=== PATIENT | female | born 1940 | race Caucasian/White ===

== ENCOUNTER → 2018-06-01 | Outpatient (CLI) | payer MEDICARE ==
[~2018-06-01] MED LIST: ASPI-1197 PO; CLOP75TA14 PO; HYDR-4153 PO; METO-408 PO; OMEP20CA10 PO; PRAV20TA4 PO; REGADENOSON 0.4 MG/5 ML PF SYG IVP SCH; RISE35TA PO
== END | disposition home or self-care (01) ==
LOC: SHCH 08:31
PROVIDERS: ATTEND Internal Medicine Cardiovascular Disease
DX: I48.1 Persistent atrial fibrillation (principal); E78.5 Hyperlipidemia, unspecified
CPT/HCPCS: 78452; 93017; 96374; A9500 ×2; J2785

== ENCOUNTER → 2018-06-09 | Outpatient (CLI) | payer MEDICARE ==
[~2018-06-09] MED LIST changes: -REGADENOSON 0.4 MG/5 ML PF SYG IVP SCH
== END | disposition home or self-care (01) ==
LOC: SHCH 09:30
PROVIDERS: ATTEND Internal Medicine Cardiovascular Disease
DX: I07.1 Rheumatic tricuspid insufficiency (principal); I27.20 Pulmonary hypertension, unspecified; I25.10 Atherosclerotic heart disease of native coronary artery without angina pectoris; Z79.01 Long term (current) use of anticoagulants
CPT/HCPCS: 93306

== ENCOUNTER → 2018-07-08 | Outpatient (CLI) | payer MEDICARE ==
[~2018-07-08] MED LIST changes: +APIX5TAB PO; +CHOL100018 PO; -CLOP75TA14 PO; -HYDR-4153 PO; +LORA10CA9 PO; +MULT1TAB70 PO; +OSCD250 PO; +UBIQ75CA PO
== END | disposition home or self-care (01) ==
LOC: SHCH 08:25
PROVIDERS: ATTEND Internal Medicine Cardiovascular Disease
DX: I74.9 Embolism and thrombosis of unspecified artery (principal); I70.90 Unspecified atherosclerosis
CPT/HCPCS: 93975

== ENCOUNTER 2018-09-09 07:47 | Day surgery (SDC) | payer MEDICARE ==
[2018-09-07 14:10] VITALS: BP 164/73
[2018-09-07 14:13] LABS: BASOPHILS % (AUTO) 0.6 % (0.0-5.0); EOSINOPHILS % (AUTO) 3.3 % (0.0-8.0); HEMATOCRIT 36.9 % (36-48); LYMPHOCYTES % (AUTO) 28.8 % (21.0-51.0); MEAN CORPUSCULAR HEMOGLOBIN 31.5 pg (27.0-33.0); MEAN CORPUSCULAR HGB CONC 33.4 g/dL (32.0-36.0); MEAN CORPUSCULAR VOLUME 94.3 fL (79-99); MONOCYTES % (AUTO) 6.8 % (3.0-13.0); NEUTROPHILS % (AUTO) 60.5 % (40.0-77.0); PLATELET COUNT (AUTO) 263 K/uL (130-400); RED BLOOD CELL COUNT(AUTO) 3.91 MIL/uL (4.00-5.50); WHITE BLOOD COUNT (AUTO) 7.2 K/uL (4.8-10.8)
[2018-09-07 14:22] LABS: CREATININE 1.1 mg/dL (0.5-1.5); POTASSIUM 4.8 mmol/L (3.5-5.1)
[2018-09-07 14:26] LABS: INR 1.02 (0.85-1.15); PARTIAL THROMBOPLASTIN TIME 29.1 SEC (26.3-35.5); PROTHROMBIN TIME 10.7 SEC (9.6-11.6)
[2018-09-09] VITALS (20 sets, daily range): BP systolic 113–169; BP diastolic 52–80
[~2018-09-09] VITALS: Ht 167.6 cm; Wt 77.7 kg
[~2018-09-09 07:47] MED LIST changes: +ASPI-1181 PO; -ASPI-1197 PO; -LORA10CA9 PO; +LORA10TA7 PO; +NITR0.4T50 SL; -OMEP20CA10 PO; +PRAV20TA PO; -PRAV20TA4 PO; +UBID200C37 PO; -UBIQ75CA PO
[2018-09-09] MEDS ORDERED: SODIUM CHLORIDE 0.9% 1000ML 1,000 ML IV SCH (09:00)
[2018-09-09] MEDS ORDERED: MIDAZOLAM HCL 1 MG/ML 2ML VIAL IVP SCH (09:00)
[2018-09-09] MEDS ORDERED: FENTANYL CITRATE PF 50 MCG/1 ML 2ML VIAL IVP SCH (09:00)
[2018-09-09] MEDS ORDERED: LIDOCAINE HCL 2% VISCOUS 15 ML UDCUP PO SCH (09:00)
[2018-09-09] MEDS ORDERED: SODIUM CHLORIDE 0.9% 1000ML 1,000 ML IV ONE (09:05)
[2018-09-09] MEDS ORDERED: PROPOFOL 10 MG/ML 20ML VIAL IV ONE (11:20)
== END 2018-09-09 13:10 | disposition home or self-care (01) ==
LOC: DAH 07:47
PROVIDERS: ATTEND Internal Medicine Cardiovascular Disease
DX: I08.1 Rheumatic disorders of both mitral and tricuspid valves (principal); I48.1 Persistent atrial fibrillation; M54.12 Radiculopathy, cervical region; Z98.890 Other specified postprocedural states; I10 Essential (primary) hypertension; E78.5 Hyperlipidemia, unspecified; I25.10 Atherosclerotic heart disease of native coronary artery without angina pectoris; Z95.5 Presence of coronary angioplasty implant and graft; K22.2 Esophageal obstruction; K21.0 Gastro-esophageal reflux disease with esophagitis; M81.0 Age-related osteoporosis without current pathological fracture; M19.90 Unspecified osteoarthritis, unspecified site; Z79.01 Long term (current) use of anticoagulants; Z80.9 Family history of malignant neoplasm, unspecified
CPT/HCPCS: 36415; 80048; 85025; 85610; 85730; 92960; 93005 ×2; 93313; A4606; J2250; J2704; J3010; J7030; 99152; 99153

== ENCOUNTER 2019-08-26 10:24 | Observation (INO) | payer MEDICARE ==
[2019-08-25 10:13] LABS: BASOPHILS % (AUTO) 0.6 % (0.0-5.0); HEMATOCRIT 40.3 % (36-48); LYMPHOCYTES % (AUTO) 22.6 % (21.0-51.0); MEAN CORPUSCULAR HEMOGLOBIN 30.5 pg (27.0-33.0); MEAN CORPUSCULAR VOLUME 98.3 fL (79-99); MONOCYTES % (AUTO) 8.2 % (3.0-13.0); NEUTROPHILS % (AUTO) 64.4 % (40.0-77.0); PLATELET COUNT (AUTO) 174 K/uL (130-400); RED CELL DISTRIBUTION WIDTH 12.2 % (11.0-15.5); WHITE BLOOD COUNT (AUTO) 5.3 K/uL (4.8-10.8)
[2019-08-25 10:21] LABS: CREATININE 1.1 mg/dL (0.5-1.5); POTASSIUM 4.7 mmol/L (3.5-5.1)
[2019-08-25 10:23] VITALS: BP 148/78
[2019-08-25 10:28] LABS: INR 1.02 (0.85-1.15); PARTIAL THROMBOPLASTIN TIME 25.7 SEC (26.3-35.5); PROTHROMBIN TIME 10.7 SEC (9.6-11.6)
--- NOTE | 2019-08-25 10:55 | NUR ---
SPOKE TO JASS FOR BIOTRONIC AND HE IS AWARE OF PPM DUAL
[2019-08-26] VITALS (8 sets, daily range): BP systolic 114–153; BP diastolic 61–89
[~2019-08-26] VITALS: Ht 167.6 cm; Wt 75.7 kg
[~2019-08-26 10:24] MED LIST changes: +CEFAZOLIN SODIUM 1 GM VIAL IVP SCH; +SODIUM CHLORIDE 0.9% 500ML 500 ML IV SCH
[2019-08-26] MEDS ORDERED: SODIUM CHLORIDE 0.9% 1000ML 1,000 ML IV ONE (12:48)
[2019-08-26] MEDS ORDERED: TYLENOL PO (12:57)
[2019-08-26] MEDS ORDERED: VITAMIN B PO (12:57)
[2019-08-26] MEDS ORDERED: OMEP20TA25 PO (12:57)
[2019-08-26] MEDS ORDERED: [UNRECOGNIZED DRUG - OTHER] PO (12:59)
[2019-08-26] MEDS ORDERED: MEPERIDINE-PF 25 MG/ML SYG ONE ×2 (13:25→14:09)
[2019-08-26] MEDS ORDERED: CEFAZOLIN SODIUM 1 GM VIAL ONE (13:25)
[2019-08-26] MEDS ORDERED: BUPIVACAINE/PF 0.25% 30ML VIAL IJ ONE (13:25)
[2019-08-26] MEDS ORDERED: LIDOCAINE HCL 1% MDV 50ML VIAL ONE (13:26)
[2019-08-26] MEDS ORDERED: MIDAZOLAM HCL 1 MG/ML 2ML VIAL ONE ×2 (13:26→14:09)
[2019-08-26] MEDS ORDERED: ACETAMINOPHEN-CODEINE 300/30MG TAB PO PRN (14:45)
[2019-08-26] MEDS ORDERED: NITROGLYCERIN 0.4 MG SL TAB SL PRN (14:45)
--- NOTE | 2019-08-26 15:10 | NUR ---
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 LT UPPER CHEST DSG DRY & INTACT. NO BLEEDING, NO HEMATOMA NOTED. SLING TO LT ARM. ARM PRECAUTIONS REVIEWED. DENIES INCISIONAL PAIN. TELE: AFIB/PACED. A/O X 3. NO SOB. NO DISTRESS NOTED. ORIENTED TO RM. INFORMED TO MAINTAIN BEDREST X 3 HRS. INSTRUCTED TO CALL FOR ASSISTANCE. CALL FLAVIO W/IN REACH.
--- NOTE | 2019-08-26 18:10 | NUR ---
STATUS BEDREST COMPLETE. LT UPPER CHEST DSG DRY & INTACT. NO BLEEDING, NO HEMATOMA NOTED. SLING TO LT ARM. DENIES INCISIONAL PAIN. PT ASSISTED OOB. TOLERATED WELL. NO DISTRESS NOTED.
[2019-08-26] MEDS: METOPROLOL TARTRATE 25 MG TAB PO SCH (20:08)
[2019-08-26] MEDS: CALCIUM 600 + VITAMIN D 400 TABLET PO SCH (20:08)
[2019-08-26] MEDS ORDERED: ATORVASTATIN CALCIUM 10 MG TABLET PO SCH (21:00)
[2019-08-27 03:00] VITALS: BP 143/69
[2019-08-27 07:43] VITALS: BP 148/75
--- NOTE | 2019-08-27 07:45 | NUR ---
AM ASSESSMENT PT LAYING IN BED, HOB ELEVATED 30 DEGREES, RESTING. A/O X 3. NO SOB. NO DISTRESS NOTED. DENIES CHEST PAIN OR DISCOMFORT. DENIES PALPITATIONS. DENIES INCISIONAL PAIN. S/P PPM , 08/26/19. LT UPPER CHEST DSG DRY & INTACT. NO BLEEDING, NO HEMATOMA NOTED. ARM PRECAUTIONS REINFORCED. TELE: AFIB/PACED. DENIES N/V AND/OR DIARRHEA. UP W/ASSISTANCE. INSTRUCTED TO CALL FOR ASSISTANCE. CALL FLAVIO W/IN REACH.
[2019-08-27] MEDS ORDERED: **HM**(Cholecalciferol (Vitamin D3) (Vitamin D3) 1,000 UNIT PO SCH (09:00)
[2019-08-27] MEDS ORDERED: LORATADINE 10 MG TABLET PO SCH (09:00)
[2019-08-27] MEDS ORDERED: ASPIRIN 81 MG EC TAB PO SCH (09:00)
[2019-08-27] MEDS ORDERED: MULTIVITAMIN TABLET PO SCH (09:00)
[2019-08-27] MEDS ORDERED: PANTOPRAZOLE SODIUM 40 MG TABLET.DR PO SCH (09:00)
[2019-08-27] MEDS: METOPROLOL TARTRATE 25 MG TAB PO SCH (09:20)
[2019-08-27] MEDS: CALCIUM 600 + VITAMIN D 400 TABLET PO SCH (09:20)
--- NOTE | 2019-08-27 09:20 | NUR ---
DISCHARGE TELE MARK REMOVED @ THIS TIME.
--- NOTE | 2019-08-27 10:20 | NUR ---
CHART REVIEWED, A[facility] GENERATED
[2019-08-27 11:32] VITALS: BP 135/68
--- NOTE | 2019-08-27 13:50 | NUR ---
DISCHARGE VERBAL & WRITTEN DISCHARGE INSTRUCTIONS REVIEWED & GIVEN TO PT & SPOUSE. QUESTIONS ENCOURAGED & CLARIFIED. PROPER CARE & ACTIVITY AFTER PPM PLACEMENT REVIEWED. REMINDED PT TO RESUME TAKING ELIQUIS TOMORROW. PT TO CONTINUE HOME MEDICATIONS. IV DISCONTINUED. PT & SPOUSE TO GATHER PERSONAL BELONGINGS. WILL NOTIFY STAFF WHEN READY TO BE TAKEN TO PRIVATE VEHICLE.
--- NOTE | 2019-08-27 14:10 | NUR ---
DISCHARGE PT TAKEN TO PRIVATE VEHICLE VIA C BY Josh NUNEZ PCP. NO DISTRESS NOTED. SPOUSE AWAITING FOR PT IN VEHICLE.
== END 2019-08-27 14:10 | disposition home or self-care (01) ==
LOC: DAH 10:24 → DAHIP 10:25 → 2AH 15:19
PROVIDERS: ADMIT Internal Medicine; ATTEND Internal Medicine
DX: I48.21 Permanent atrial fibrillation (principal); I49.5 Sick sinus syndrome; I10 Essential (primary) hypertension; E78.5 Hyperlipidemia, unspecified; K21.9 Gastro-esophageal reflux disease without esophagitis; M81.0 Age-related osteoporosis without current pathological fracture; Z86.73 Personal history of transient ischemic attack (TIA), and cerebral infarction without residual deficits; Z79.899 Other long term (current) drug therapy
CPT/HCPCS: 33207; 36415; 71045; 80048; 85025; 85610; 85730; A4215; A4216; A4221; A4222; A4223 ×2; A4606; A4663; C1786; C1898; G0378 ×15; J0690; J2175 ×2; J2250 ×2; J3490 ×2; J7030; 99156; 99157

== ENCOUNTER 2019-10-08 18:53 | Inpatient (IN) | payer MEDICARE ==
[~2019-10-08] VITALS: Ht 167.6 cm; Wt 76.0 kg
[~2019-10-08 18:53] MED LIST changes: -CEFAZOLIN SODIUM 1 GM VIAL IVP SCH; +OMEP20TA25 PO; -SODIUM CHLORIDE 0.9% 500ML 500 ML IV SCH; +TYLENOL PO; +VITAMIN B PO; +[UNRECOGNIZED DRUG - OTHER] PO
[2019-10-08] MEDS ORDERED: ASPIRIN 325 MG TABLET ONE (19:36)
[2019-10-08 19:41] LABS: BASOPHILS % (AUTO) 0.2 % (0.0-5.0); EOSINOPHILS % (AUTO) 3.6 % (0.0-8.0); HEMATOCRIT 37.4 % (36-48); MEAN CORPUSCULAR HEMOGLOBIN 30.9 pg (27.0-33.0); MEAN CORPUSCULAR HGB CONC 32.9 g/dL (32.0-36.0); MONOCYTES % (AUTO) 8.4 % (3.0-13.0); NEUTROPHILS % (AUTO) 51.6 % (40.0-77.0); PLATELET COUNT (AUTO) 205 K/uL (130-400); RED BLOOD CELL COUNT(AUTO) 3.98 MIL/uL (4.00-5.50); RED CELL DISTRIBUTION WIDTH 11.9 % (11.0-15.5); WHITE BLOOD COUNT (AUTO) 6.1 K/uL (4.8-10.8)
[2019-10-08 19:50] LABS: CREATININE 1.5 mg/dL (0.5-1.5); POTASSIUM 4.2 mmol/L (3.5-5.1)
[2019-10-08] MEDS ORDERED: SODIUM CHLORIDE 0.9% 1000ML 1,000 ML IV ONE (21:35)
[2019-10-08] MEDS ORDERED: NITROGLYCERIN 1GM/1 INCH PACKET TD ONE (22:25)
[2019-10-09] MEDS ORDERED: ACETAMINOPHEN 325 MG TAB PO PRN ×2 (02:15)
[2019-10-09] MEDS ORDERED: LACTULOSE 20 GM/30 ML UDCUP PO PRN (02:15)
[2019-10-09] MEDS ORDERED: ONDANSETRON HCL 4 MG/2 ML VIAL IV PRN (02:15)
[2019-10-09] MEDS: NITROGLYCERIN 1GM/1 INCH PACKET TD SCH ×3 (02:15→18:17)
[2019-10-09] MEDS ORDERED: MORPHINE SULFATE 2 MG/ML 1ML SYG IVP PRN (02:15)
[2019-10-09 05:50] VITALS: BP 156/61
[2019-10-09] MEDS ORDERED: [UNRECOGNIZED DRUG - OTHER] PO (06:09)
[2019-10-09] MEDS ORDERED: LACT1CAP78 PO (06:09)
[2019-10-09 07:26] LABS: BASOPHILS % (AUTO) 0.2 % (0.0-5.0); EOSINOPHILS % (AUTO) 4.1 % (0.0-8.0); HEMATOCRIT 38.4 % (36-48); MEAN CORPUSCULAR HEMOGLOBIN 30.2 pg (27.0-33.0); MEAN CORPUSCULAR HGB CONC 31.3 g/dL (32.0-36.0); MEAN CORPUSCULAR VOLUME 96.7 fL (79-99); MONOCYTES % (AUTO) 8.7 % (3.0-13.0); NEUTROPHILS % (AUTO) 51.8 % (40.0-77.0); PLATELET COUNT (AUTO) 207 K/uL (130-400); RED BLOOD CELL COUNT(AUTO) 3.97 MIL/uL (4.00-5.50); RED CELL DISTRIBUTION WIDTH 12.2 % (11.0-15.5); WHITE BLOOD COUNT (AUTO) 5.1 K/uL (4.8-10.8)
[2019-10-09 07:33] LABS: CREATININE 1.2 mg/dL (0.5-1.5); POTASSIUM 4.3 mmol/L (3.5-5.1)
[2019-10-09 07:42] LABS: ALBUMIN 3.5 g/dL (3.5-5.0); BILIRUBIN,TOTAL 0.4 mg/dL (0.2-1.0)
[2019-10-09 08:00] VITALS: BP 155/83
[2019-10-09] MEDS ORDERED: NITROGLYCERIN 0.4 MG SL TAB SL PRN (08:30)
[2019-10-09] MEDS: ASPIRIN 81 MG EC TAB PO SCH (09:00)
[2019-10-09] MEDS ORDERED: ACTONEL 35 MG PO SCH (09:00)
[2019-10-09] MEDS ORDERED: APIXABAN 5 MG TABLET PO SCH (09:00)
[2019-10-09] MEDS: METOPROLOL SUCCINATE 50 MG TAB.SR.24H PO SCH (09:39)
[2019-10-09] MEDS: ASPIRIN 81MG TAB.CHEW PO SCH (09:40)
[2019-10-09] MEDS: LORATADINE 10 MG TABLET PO SCH (09:40)
[2019-10-09] MEDS: FAMOTIDINE/PF 20 MG/2 ML VIAL IV SCH ×2 (09:41→20:25)
[2019-10-09 11:00] VITALS: BP 150/79
[2019-10-09 16:00] VITALS: BP 144/75
--- NOTE | 2019-10-09 16:00 | NUR ---
INITIAL MET Gregoria VALENTINE AND SPOUSE AT BEDSIDE- WINTER YISEL, ACTIVE AND INDEPENDENT- NO DME EXCEPT WHEN SHE 'GOES TO AN AIRPORT, I GET THE WHEELCHAIR THEN' DANCES 5 NIGHTS PER WEEK WITH HER . HOME SAFE AND ACCESSIBLE HERE FOR POSSIBLE PACE MAKER MALFUNCTION, JUST PLACED 6 WEEKS AGO, POSSIBLE LEAD DISPLACEMENT, STATES WAS COMPLIANT WITH INSTRUCTIONS ABOUT NOT RAISING ARM ABOVE HEAD BUT IS VERY ACTIVE. [facility], [place] TO FOLLOW Addendum: 10/10/19 at 0923 by HARDEEP JAY RN CM Amended: Links added.
[2019-10-09 19:50] VITALS: BP 144/72
[2019-10-09] MEDS: ATORVASTATIN CALCIUM 10 MG TABLET PO SCH (20:26)
[2019-10-09 23:05] VITALS: BP 132/46
[2019-10-10] MEDS: NITROGLYCERIN 1GM/1 INCH PACKET TD SCH (02:06)
[2019-10-10 03:42] VITALS: BP 136/67
[2019-10-10 08:00] VITALS: BP 152/87
[2019-10-10] MEDS: ASPIRIN 81 MG EC TAB PO SCH (08:50)
[2019-10-10] MEDS: ASPIRIN 81MG TAB.CHEW PO SCH (08:54)
[2019-10-10] MEDS: LORATADINE 10 MG TABLET PO SCH (08:54)
[2019-10-10] MEDS: METOPROLOL SUCCINATE 50 MG TAB.SR.24H PO SCH (08:55)
[2019-10-10] MEDS: FAMOTIDINE/PF 20 MG/2 ML VIAL IV SCH ×2 (08:55→20:36)
[2019-10-10 11:00] VITALS: BP 133/73
[2019-10-10 15:59] VITALS: BP 135/94
[2019-10-10 19:07] VITALS: BP 122/66
[2019-10-10] MEDS: ATORVASTATIN CALCIUM 10 MG TABLET PO SCH (20:36)
[2019-10-10 23:33] VITALS: BP 137/71
[2019-10-11] VITALS (11 sets, daily range): BP systolic 124–163; BP diastolic 53–90
[2019-10-11 05:00] LABS: HEMATOCRIT 40.9 % (36-48); MEAN CORPUSCULAR HEMOGLOBIN 30.7 pg (27.0-33.0); MEAN CORPUSCULAR HGB CONC 31.8 g/dL (32.0-36.0); MEAN CORPUSCULAR VOLUME 96.7 fL (79-99); PLATELET COUNT (AUTO) 204 K/uL (130-400); RED BLOOD CELL COUNT(AUTO) 4.23 MIL/uL (4.00-5.50); RED CELL DISTRIBUTION WIDTH 11.9 % (11.0-15.5); WHITE BLOOD COUNT (AUTO) 5.6 K/uL (4.8-10.8)
[2019-10-11 05:08] LABS: CREATININE 1.2 mg/dL (0.5-1.5); POTASSIUM 4.4 mmol/L (3.5-5.1)
[2019-10-11 05:11] LABS: INR 0.98 (0.85-1.15); PARTIAL THROMBOPLASTIN TIME 25.1 SEC (26.3-35.5); PROTHROMBIN TIME 10.6 SEC (9.6-11.6)
[2019-10-11] MEDS: ASPIRIN 81 MG EC TAB PO SCH (07:41)
[2019-10-11] MEDS: FAMOTIDINE/PF 20 MG/2 ML VIAL IV SCH ×2 (08:53→20:28)
[2019-10-11] MEDS: METOPROLOL SUCCINATE 50 MG TAB.SR.24H PO SCH (08:53)
[2019-10-11] MEDS: LORATADINE 10 MG TABLET PO SCH (08:56)
[2019-10-11] MEDS: ASPIRIN 81MG TAB.CHEW PO SCH (08:56)
[2019-10-11] MEDS ORDERED: BUPIVACAINE/PF 0.25% 30ML VIAL IJ ONE (09:29)
[2019-10-11] MEDS ORDERED: MIDAZOLAM HCL 1 MG/ML 2ML VIAL ONE ×2 (09:29→10:24)
[2019-10-11] MEDS ORDERED: LIDOCAINE HCL 1% MDV 50ML VIAL ONE (09:30)
[2019-10-11] MEDS ORDERED: VANCOMYCIN 1GM+NS 250ML 250 ML IV ONE ×2 (09:30→09:32)
[2019-10-11] MEDS ORDERED: MEPERIDINE-PF 25 MG/ML SYG ONE ×2 (09:30→10:24)
[2019-10-11] MEDS ORDERED: ACETAMINOPHEN-CODEINE 300/30MG TAB PO PRN (11:15)
--- NOTE | 2019-10-11 11:25 | NUR ---
RECEIVED PT FROM [employer] PACEMAKER LINE REPLACEMENT; PT HAS A CLEAN DRY AND INTACT DRESSING TO LEFT CHEST, LEFT ARM IS IN A SLING, PT DENIES PAIN, AAOX3 AND STRONG RADIAL PULSE LEFT WRIST; I HAVE GONE OVER WITH PATIENT RESTRICTIONS ASSOCIATED WITH PROCEDURE INCLUDING 4 HOURS OF BEDREST AND LEFT ARM LIMITATIONS AND SHE STATED UNDERSTANDING; VS STABLE , TELEMETRY REPLACED AND I SPOKE TO DR HEARN ON THE PHONE AND HE STATED TO NOT START ELEQUIS AT THIS TIME BUT THAT HE WOULD GIVE FURTHER ORDERS TOMORROW.
[2019-10-11] MEDS: ATORVASTATIN CALCIUM 10 MG TABLET PO SCH (20:28)
[2019-10-12 00:08] VITALS: BP 117/59
[2019-10-12 04:08] VITALS: BP 131/75
[2019-10-12 05:03] LABS: BASOPHILS % (AUTO) 0.5 % (0.0-5.0); EOSINOPHILS % (AUTO) 4.7 % (0.0-8.0); HEMATOCRIT 40.1 % (36-48); LYMPHOCYTES % (AUTO) 32.6 % (21.0-51.0); MEAN CORPUSCULAR HEMOGLOBIN 29.9 pg (27.0-33.0); MEAN CORPUSCULAR HGB CONC 31.4 g/dL (32.0-36.0); MEAN CORPUSCULAR VOLUME 95.2 fL (79-99); MONOCYTES % (AUTO) 8.2 % (3.0-13.0); NEUTROPHILS % (AUTO) 53.8 % (40.0-77.0); PLATELET COUNT (AUTO) 188 K/uL (130-400); RED BLOOD CELL COUNT(AUTO) 4.21 MIL/uL (4.00-5.50); RED CELL DISTRIBUTION WIDTH 11.9 % (11.0-15.5)
[2019-10-12 05:20] LABS: CREATININE 1.2 mg/dL (0.5-1.5); MAGNESIUM 1.9 mg/dL (1.80-2.40); POTASSIUM 4.9 mmol/L (3.5-5.1)
[2019-10-12 08:14] VITALS: BP 138/62
[2019-10-12] MEDS: FAMOTIDINE/PF 20 MG/2 ML VIAL IV SCH (09:14)
[2019-10-12] MEDS: LORATADINE 10 MG TABLET PO SCH (09:14)
[2019-10-12] MEDS: ASPIRIN 81MG TAB.CHEW PO SCH (09:14)
[2019-10-12] MEDS: METOPROLOL SUCCINATE 50 MG TAB.SR.24H PO SCH (09:16)
--- NOTE | 2019-10-12 11:04 | NUR ---
DC PAPERWORK COMPLETE AND D/C INSRUCTIONS GIVEN TO PATIENT ON AFTERCARE FOR A PACEMAKER INSERTION (LEAD EXCHANGE) INCLUDING TO REMOVE DRESSING IN 24 TO 48 HRS, WATCH SITE FOR ANY SIGNS OR SYMPTOMS OF INFECTION AND REPORT TO MD, REPORT ANY CHEST PAIN OR OTHER CARDIAC ISSUES, FOLLOW LEFT ARM LIMB RESTRICTIONS NOT TO RAISE ABOVE SHOULDER AND WEAR SLING NEEDED, NO NEW SCRIPTS BUT TO CONT. ALL CURRENT HOME MEDICATIONS AND RESTART HOME ELEQUIS DOSE TOMORROW; KEEP FOLLOW UP APPOINTMENTS MADE WITH PCP AND DR HEARN; PT STATED UNDERSTANDING OF ALL INSTRUCTIONS, IV ACCESS REMOVED AND TELEPACK REMOVED. HERE TO DRIVE PT HOME.
== END 2019-10-12 11:39 | disposition home or self-care (01) | DRG 260 ==
LOC: EDH 18:53 → EDHIP 10-09 02:01 → 4AH 10-09 06:32
PROVIDERS: ADMIT Internal Medicine; ATTEND Internal Medicine
PROC: 4B02XSZ Measurement of Cardiac Pacemaker, External Approach (ICD-10-PCS; principal; 2019-10-09)
PROC: 02WA3MZ Revision of Cardiac Lead in Heart, Percutaneous Approach (ICD-10-PCS; 2019-10-09)
DX: T82.128A Displacement of other cardiac electronic device, initial encounter (principal); I50.21 Acute systolic (congestive) heart failure; I25.110 Atherosclerotic heart disease of native coronary artery with unstable angina pectoris; D68.69 Other thrombophilia; J44.9 Chronic obstructive pulmonary disease, unspecified; I11.0 Hypertensive heart disease with heart failure; I48.0 Paroxysmal atrial fibrillation; Y83.8 Other surgical procedures as the cause of abnormal reaction of the patient, or of later complication, without mention of misadventure at the time of the procedure; Y92.89 Other specified places as the place of occurrence of the external cause; Z79.01 Long term (current) use of anticoagulants; Z95.5 Presence of coronary angioplasty implant and graft; Z95.0 Presence of cardiac pacemaker; Z83.3 Family history of diabetes mellitus; Z82.5 Family history of asthma and other chronic lower respiratory diseases; Z82.3 Family history of stroke; Z82.0 Family history of epilepsy and other diseases of the nervous system; Z80.42 Family history of malignant neoplasm of prostate; Z80.8 Family history of malignant neoplasm of other organs or systems; Z82.49 Family history of ischemic heart disease and other diseases of the circulatory system
CPT/HCPCS: 33215; 36415; 71045; 78582; 80048; 80053; 83735; 83880; 84484; 85025; 85027; 85378; 85610; 85730; 93005; 99156; 99157; 99291; A9540; A9558; G0378; J2175; J2250; J3370; J3490; J7030

== ENCOUNTER 2022-11-08 09:47 | Emergency (ER) | payer MEDICARE ==
[~2022-11-08] VITALS: Ht 167.6 cm; Wt 72.1 kg
[~2022-11-08 09:47] MED LIST changes: -ASPI-1181 PO; +ASPI-1443 PO; +LACT1CAP78 PO; +MULT-660 PO; -MULT1TAB70 PO; +OMEP20TA20 PO; -OMEP20TA25 PO; -TYLENOL PO; +[UNRECOGNIZED DRUG - OTHER] PO
[2022-11-08 10:07] LABS: BASOPHILS % (AUTO) 0.2 % (0.0-5.0); EOSINOPHILS % (AUTO) 4.6 % (0.0-8.0); LYMPHOCYTES % (AUTO) 33.9 % (21.0-51.0); MEAN CORPUSCULAR HGB CONC 33.2 g/dL (32.0-36.0); MEAN CORPUSCULAR VOLUME 96.4 fL (79-99); MONOCYTES % (AUTO) 7.3 % (3.0-13.0); PLATELET COUNT (AUTO) 204 K/uL (130-400); RED BLOOD CELL COUNT(AUTO) 3.94 MIL/uL (4.00-5.50); RED CELL DISTRIBUTION WIDTH 12.2 % (11.0-15.5); WHITE BLOOD COUNT (AUTO) 4.8 K/uL (4.8-10.8)
[2022-11-08 10:26] LABS: APPEARANCE,URINE CLOUDY (CLEAR); BILIRUBIN,URINE NEGATIVE (NEGATIVE); COLOR,URINE YELLOW (YELLOW); GLUCOSE, URINE (UA) NEGATIVE (NEGATIVE); KETONES,URINE NEGATIVE (NEGATIVE); LEUKOCYTE ESTERASE ,URINE 500 Leu/uL (NEGATIVE); NITRATE,URINE NEGATIVE (NEGATIVE); OCCULT BLOOD,URINE NEGATIVE (NEGATIVE); PH,URINE 6.5 (5.0-8.0); PROTEIN,URINE 20 mg/dL (NEGATIVE); UROBILINOGEN,URINE 0.2 mg/dL (0.2-1.0)
[2022-11-08 10:31] LABS: POTASSIUM 4.5 mmol/L (3.5-5.1)
[2022-11-08 10:50] LABS: ALBUMIN 3.9 g/dL (3.5-5.0); CREATININE 1.2 mg/dL (0.5-1.5); TOTAL PROTEIN, SERUM 7.6 g/dL (6.0-8.3)
[2022-11-08 11:06] LABS: BACTERIA,URINE RARE /HPF (None Seen); MUCUS,URINE RARE LPF (None Seen); SQUAMOUS EPITHELIAL CELL,UR RARE /HPF (0-2); WBC,URINE 0-1 /HPF (0-1)
[2022-11-08 11:12] LABS: B-TYPE NATRIURETIC PEPTIDE 402 pg/mL (0-100)
[2022-11-08] MEDS ORDERED: IOHEXOL 350 MG/ML 100ML INFUS..BTL IV ONE ×2 (15:48→16:14)
[2022-11-08 18:13] VITALS: BP 149/71
== END 2022-11-08 18:45 | disposition short-term general hospital (02) ==
LOC: EDH 09:47
DX: I63.9 Cerebral infarction, unspecified (principal); I10 Essential (primary) hypertension; E78.00 Pure hypercholesterolemia, unspecified; R47.02 Dysphasia; Z79.899 Other long term (current) drug therapy; Z79.82 Long term (current) use of aspirin; Z98.890 Other specified postprocedural states; Z95.810 Presence of automatic (implantable) cardiac defibrillator
CPT/HCPCS: 99285; 82550; 84484; 80053; 83880; 85025; 85730; 87088; 82948; 81001; 36415; 71045; 70450; 70496; 70498; 92522; 92610; 93005; Q9967 ×2

== ENCOUNTER → 2024-08-11 | Outpatient (CLI) | payer MEDICARE ==
[~2024-08-11] MED LIST changes: -NITR0.4T50 SL; -[UNRECOGNIZED DRUG - OTHER] PO
[2024-08-11 16:36] LABS: MAGNESIUM 1.7 mg/dL (1.80-2.40); POTASSIUM 4.3 mmol/L (3.5-5.1)
== END | disposition home or self-care (01) ==
LOC: LAB 15:02
PROVIDERS: ATTEND Physician Assistant
DX: I48.20 Chronic atrial fibrillation, unspecified (principal)
CPT/HCPCS: 36415; 80048; 83735

== ENCOUNTER → 2024-08-27 | Outpatient (CLI) | payer MEDICARE ==
[2024-08-27 12:37] LABS: CREATININE 1.1 mg/dL (0.5-1.0); MAGNESIUM 1.6 mg/dL (1.80-2.40); POTASSIUM 4.9 mmol/L (3.5-5.1)
== END | disposition home or self-care (01) ==
LOC: LAB 09:58
PROVIDERS: ATTEND Internal Medicine Cardiovascular Disease
DX: E83.42 Hypomagnesemia (principal)
CPT/HCPCS: 36415; 80048; 83735